=== PATIENT | female | born 2000 ===

== ENCOUNTER 2021-07-19 13:52 | Emergency (ER) | payer SELFPAY | END 2021-07-19 14:00 | disposition left against medical advice (07) | LOC: ED 13:52 | DX: S01.91XA Laceration without foreign body of unspecified part of head, initial encounter (principal); Z53.21 Procedure and treatment not carried out due to patient leaving prior to being seen by health care provider; Y08.89XA Assault by other specified means, initial encounter; Y93.89 Activity, other specified; Y92.89 Other specified places as the place of occurrence of the external cause; Y99.8 Other external cause status ==